=== PATIENT | female | born 1970 | race Caucasian/White ===

== ENCOUNTER → 2022-11-24 | Outpatient (CLI) | payer BC ==
[~2022-11-24] VITALS: Ht 165.1 cm; Wt 117.3 kg
[~2022-11-24] MED LIST: LIDOCAINE 1% INJ 30 ML (XYLOCAINE) VIAL INJ ONE
--- NOTE | 2022-11-24 13:57 | Diagnostic Imaging Report ---
INDICATION: Left breast nodule. PROCEDURE: The patient presents for ultrasound-guided core biopsy. The patient was brought to the sonographic suite and placed on the table in the supine position. Ultrasound imaging of the left breast was performed to evaluate appropriate entry site. Left breast was then prepped and draped in the usual sterile fashion. A small amount of 1% lidocaine was utilized for local anesthesia. A total of 4 core biopsies were obtained of the hypoechoic mass at the 3:00 location of the left breast, 4 cm from the nipple, utilizing the 14-gauge Achieve needle. A marker clip was then deployed. Hemostasis was obtained using manual compression. The patient tolerated the procedure well and was sent for postprocedure mammogram in satisfactory condition. IMPRESSION: Successful ultrasound core biopsy of the hypoechoic mass at the 3:00 location of the left breast, 4 cm from the nipple. Pathology results are currently pending. Dictated by: Dictated on workstation # [id number]
--- NOTE | 2022-11-24 16:37 | Diagnostic Imaging Report ---
INDICATION: Left breast lump, status post ultrasound-guided biopsy. Unilateral left 2-D CC and ML mammography was performed after patient underwent ultrasound-guided core biopsy. Images demonstrate a clip in the outer left breast at mid depth, status post biopsy. IMPRESSION: Clip placement adjacent to the area of abnormal density in the left breast, status post ultrasound-guided biopsy. Dictated by: Dictated on workstation # [id number]
== END ==
LOC: RAD 13:00
PROVIDERS: ATTEND Nurse Practitioner Family
DX: N63.20 Unspecified lump in the left breast, unspecified quadrant (principal); Z98.82 Breast implant status
CPT/HCPCS: 19083; 77065; G0279